=== PATIENT | female | born 1995 | race Two or more races ===

== ENCOUNTER → 2024-01-14 | Emergency (ER) | payer OTHER ==
[~2024-01-14] VITALS: Ht 157.5 cm; Wt 63.5 kg
[~2024-01-14] MED LIST: BACTRIM DS TAB1 EACH PO; CENTANY30 GM NASAL
== END | disposition home or self-care (01) ==
LOC: ER 21:13
DX: L02.91 Cutaneous abscess, unspecified (principal); Z91.040 Latex allergy status

== ENCOUNTER → 2024-01-18 11:23 | Outpatient (CLI) | payer OTHER | END | disposition home or self-care (01) | LOC: LAB 11:23 | PROVIDERS: ATTEND Specialist | DX: L02.91 Cutaneous abscess, unspecified (principal) ==